=== PATIENT | male | born 1940 | race Caucasian/White ===

== ENCOUNTER 2022-03-13 15:49 | Outpatient (CLI) | payer MEDICARE, SELFPAY ==
[2022-03-13 11:05] LABS: Anion Gap 5.3 mmol/L (3-11); BUN 41 mg/dL (7-18); CO2 26.7 mmol/L (21.0-32.0); CREATININE 2.3 mg/dL (0.70-1.30); Calcium 8.4 mg/dL (8.5-10.1); Chloride 105 mmol/L (98-107); Glucose 119 mg/dL (74-106); Potassium 3.9 mmol/L (3.5-5.1); Sodium 137 mmol/L (136-145)
== END 2022-03-13 15:50 | disposition home or self-care (01) ==
LOC: LBO 15:52
PROVIDERS: PCP Internal Medicine Nephrology; Visit Provider Internal Medicine Nephrology
DX: N17.9 Acute kidney failure, unspecified (principal)
CPT/HCPCS: 36415; 80048

== ENCOUNTER 2022-03-15 12:40 | Outpatient (CLI) | payer MEDICARE, SELFPAY ==
[2022-03-15 11:01] LABS: Anion Gap 5.9 mmol/L (3-11); BUN 41 mg/dL (7-18); CO2 27.1 mmol/L (21.0-32.0); CREATININE 2.1 mg/dL (0.70-1.30); Calcium 8.5 mg/dL (8.5-10.1); Chloride 105 mmol/L (98-107); Estimated GFR 30.54 (mL/min/1.73m2); Glucose 112 mg/dL (74-106); Potassium 4.1 mmol/L (3.5-5.1); Sodium 138 mmol/L (136-145)
== END 2022-03-15 12:41 | disposition home or self-care (01) ==
LOC: LBO 12:41
PROVIDERS: PCP Internal Medicine Nephrology; Visit Provider Internal Medicine Nephrology
DX: N17.9 Acute kidney failure, unspecified (principal)
CPT/HCPCS: 36415; 80048

== ENCOUNTER → 2022-03-28 13:38 | Outpatient (BNVA) | payer MEDICARE, SELFPAY | PROVIDERS: PCP Family Medicine; Referring Provider Internal Medicine Nephrology; Visit Provider Surgery | DX: N17.9 Acute kidney failure, unspecified (principal); Z45.2 Encounter for adjustment and management of vascular access device | CPT/HCPCS: 36590; 99241 ==